=== PATIENT | female | born 1935 | race Caucasian/White ===

== ENCOUNTER 2020-06-13 12:52 | Emergency (ER) | payer OTHER ==
[~2020-06-13] VITALS: Ht 172.7 cm; Wt 113.4 kg
[~2020-06-13 12:52] MED LIST: DIFLUCAN150 MG PO; FERRO-TIME325 MG PO; GLUCOPHAGE500 MG PO; GLUCOTROL5 MG PO; GLYBURIDE 5 MG T5 M1 PO; MOBIC15 MG PO; NABUMETONE 500500 M1 PO; NEURONTIN 300300 M1 PO; PLAVIX 75 MG TA75 MG PO; TESSALON PERLE100 MG PO; TYLENOL EX-STR500 M2 PO; ZOCOR 20 MG TAB20 M1 PO
[2020-06-13 14:00] LABS: URINE BLOOD TRACE (Negative); URINE CLARITY CLEAR; URINE COLOR YELLOW; URINE GLUCOSE-RANDOM* NEGATIVE (Negative); URINE KETONES 1+ (Negative); URINE LEUKOCYTES-REFLEX NEGATIVE (Negative); URINE NITRITE-REFLEX NEGATIVE (Negative); URINE PROTEIN (DIPSTICK) TRACE (Negative); URINE SPECIFIC GRAVITY >= 1.030 (1.005-1.035); URINE UROBILINOGEN 0.2 E.U./dl (0.2-1.0)
[2020-06-13 14:03] LABS: ICTOTEST (BILI CONFIRMATORY) Negative (Negative); URINE BILIRUBIN NEGATIVE (Negative)
[2020-06-13 15:10] VITALS: BP 132/66
== END 2020-06-13 15:10 ==
LOC: ER 12:52
PROVIDERS: Emergency Medicine
DX: S62.657A Nondisplaced fracture of middle phalanx of left little finger, initial encounter for closed fracture (principal); M25.511 Pain in right shoulder; E11.9 Type 2 diabetes mellitus without complications; Z90.710 Acquired absence of both cervix and uterus; Z79.899 Other long term (current) drug therapy; Z88.2 Allergy status to sulfonamides; W19.XXXA Unspecified fall, initial encounter; Y93.89 Activity, other specified; Y92.89 Other specified places as the place of occurrence of the external cause; Y99.8 Other external cause status

== ENCOUNTER 2020-07-16 08:18 | Inpatient (IN) | payer OTHER ==
[2020-07-16] VITALS (7 sets, daily range): BP systolic 122–133; BP diastolic 54–58
[~2020-07-16] VITALS: Ht 160 cm; Wt 97.0 kg
[2020-07-16] MEDS ORDERED: SPIRONOLACTONE25 M1 PO ×2 (08:36→08:37)
[2020-07-16] MEDS ORDERED: PAIN RELIEF650 MG PO (08:36)
[2020-07-16] MEDS ORDERED: DOXYCYCLINE 10100 M2 PO (08:37)
[2020-07-16] MEDS ORDERED: NEURONTIN300 MG PO (08:37)
[2020-07-16] MEDS ORDERED: FUROSEMIDE 20 M20 M1 PO (08:37)
[2020-07-16] MEDS ORDERED: ARICEPT10 M1 PO (08:37)
[2020-07-16] MEDS ORDERED: PIOGLITAZONE15 MG (08:39)
[2020-07-16] MEDS ORDERED: TOPAMAX50 MG PO (08:39)
[2020-07-16] MEDS ORDERED: GLIMEPIRIDE4 MG PO (08:39)
[2020-07-16] MEDS ORDERED: LIPITOR 20 MG T20 M1 PO (08:39)
[2020-07-16] MEDS ORDERED: VITAMIN B122500 MCG PO (08:40)
[2020-07-16 09:36] LABS: URINE BILIRUBIN NEGATIVE (Negative); URINE BLOOD NEGATIVE (Negative); URINE CLARITY CLEAR; URINE COLOR YELLOW; URINE GLUCOSE-RANDOM* TRACE (Negative); URINE KETONES NEGATIVE (Negative); URINE LEUKOCYTES-REFLEX NEGATIVE (Negative); URINE NITRITE-REFLEX NEGATIVE (Negative); URINE PROTEIN (DIPSTICK) NEGATIVE (Negative); URINE SPECIFIC GRAVITY 1.025 (1.005-1.035); URINE UROBILINOGEN 0.2 E.U./dl (0.2-1.0)
[2020-07-16 09:56] LABS: HEMATOCRIT 37.9 % (37.0-47.0); HEMOGLOBIN 12.7 gm/dL (12.0-15.0); MCH 32.1 pg (26.0-34.0); MCHC 33.5 g/dL (28.0-37.0); MCV 95.6 fL (80.0-100.0); PLATELET COUNT 302 thou/uL (150-400); RBC 3.97 mil/uL (4.20-5.00); RDW 14.1 % (10.5-14.5); WBC 6.7 thou/uL (4.0-11.0)
[2020-07-16 10:10] LABS: ANION GAP 6 mmol/L (7-16); BUN 26 mg/dL (7-18); CALCIUM 9.4 mg/dL (8.5-10.1); CHLORIDE 99 mmol/L (98-107); CO2 30 mmol/L (21-32); CREATININE 1.7 mg/dL (0.6-1.0); GLUCOSE 161 mg/dL (74-106); POTASSIUM 3.9 mmol/L (3.5-5.1); SODIUM 135 mmol/L (136-145)
[2020-07-16 10:20] LABS: ALBUMIN 2.3 g/dL (3.4-5.0); SGOT 12 U/L (15-37); SGPT 12 U/L (30-65); TOTAL BILIRUBIN 0.2 mg/dL (0.2-1.0); TROPONIN-I <0.06 ng/mL (<0.06)
[2020-07-16 10:51] LABS: ABSOLUTE NEUTROPHILS 3.7 thou/uL (1.4-8.2); ANISOCYTOSIS 1+
--- NOTE | 2020-07-16 18:27 | NUR ---
PT RECEIVED AT 1130 FROM THE ER ALERT AND IN NO ACUTE DISTRESS. PT HAS CHRONIC CHALINO EDEMA AND STARTED WEEPING W/ SIGNS OF INFECTION. IV ANTIBIOTICS STARTED IN THE ER. LAXIX GIVEN X2. PT UP TO BSC ONCE BUT PLACED EXT CATH LATER PT WEAKER. LEGS PAINFUL IF TOUCHED OR MOVED BUT OTHERWISE NOT CAUSING DISCOMFORT. TYLENOL GIVEN FOR HEADACHE WHICH SHE STATES SHE HAS OFTEN. DR. POWELL HERE TO SEE LEGS AND ORDERS CREAM AND DSNGS. ID WILL SEE PT TOMORROW. EATING WELL.
--- NOTE | 2020-07-17 03:27 | NUR ---
PT ALERT, ORIENTED TO PERSON, AND DROWSY. PT NOTED TO HAVE TREMORS AT REST. PT DENIES PAIN AT REST. NOTED TO HAVE INCREASED PAIN WITH MOVEMENT AND TACTILE STIMULATION. PT REPORTS STIFFNESS IN LEFT INDEX FINGER. PT REPORTS RELIEF TO LEFT INDEX FINGER AFTER MASSAGE TO LEFT HAND AND WARM BLANKET APPLIED. PT WITH PRN PO APAP QID AND PRN IV FENTANYL Q4HR AVAILABLE. RESTING IN BED THROUGHOUT SHIFT. FREQUENT REPOSITIONING ENCOURAGED. WEEPING, PITTING EDEMA NOTED TO BLE. PT NOTED TO HAVE DIFFICULTY WITH REPOSITIONING DUE TO TENDERNESS AND PAIN IN BLE. PT AWAKENED REPORTING PAIN IN BILATERAL ANKLES. PT RECEIVED PRN IV FENTANYL Q4HR. PT RESTING IN BED WITHOUT INTERRUPTION OR OBSERVATION OF PAIN, SOB, OR DISCOMFORT. ENCOURAGED PT TO NOTIFY STAFF FOR ALL NEEDS. CALL LIGHT WITHIN REACH, BED ALARM ON, BED IN LOWEST POSITION, WILL CONTINUE TO MONITOR.
[2020-07-17 05:52] LABS: HEMATOCRIT 34.4 % (37.0-47.0); HEMOGLOBIN 11.3 gm/dL (12.0-15.0); MCH 31.9 pg (26.0-34.0); MCHC 32.9 g/dL (28.0-37.0); RBC 3.55 mil/uL (4.20-5.00); WBC 6.6 thou/uL (4.0-11.0)
[2020-07-17 06:35] LABS: CALCIUM 8.9 mg/dL (8.5-10.1); POTASSIUM 3.2 mmol/L (3.5-5.1)
--- NOTE | 2020-07-17 08:22 | EKG ---
[facility] [place] [address] ELECTROCARDIOGRAM REPORT Name: FLACO SNIDER Room #: 437-P ADM IN M.R.#: [id number] Admission: 07/16/20 Attend Phys: eKnny Lerma MD Discharge: Date of : 33 Report #: [id number] THIS REPORT FOR: cc: Temo Lawrence MD, Ramilo MD Lundgren,Erick Elizalde MD [facility] ~ THIS REPORT FOR: //name// [facility] ED Test Date: 2020-07-16 Test Time: 10:01:16 Pat Name: FLACO SNIDER Department: Room: [facility] Gender: F Gate Supervisor: марина : 1935 Requested By: Jay Jay Santamaria Order Number: [id number] MD: Erick Gann Measurements Intervals [place] Rate: 75 P: 42 MI: 246 QRS: 76 QRSD: 150 T: 3 QT: 448 QTc: 501 Interpretive Statements Sinus rhythm Prolonged MI interval Right bundle branch block Compared to ECG 10/24/2011 12:21:58 First degree AV block now present Right bundle-branch block now present Electronically Signed On 07-17-2020 8:21:57 CDT by Erick Gann [email or web address] <ELECTRONICALLY SIGNED> By: Erick Gann MD, FAC 07/17/20 0821 00 100 Erick Gann MD, FAC /EPI
[2020-07-17 16:10] VITALS: BP 110/53
--- NOTE | 2020-07-17 17:06 | NUR ---
PT A&OX2. FORGETFUL. ASSIST X1 TO BSC. IV INTACT IN L FA. BILAT LOWER EXTREM. ARE RED, WARM TO TOUCH. PAIN AT 7/10. ORDERS RECIEVED FOR WOUND CARE. CALL LIGHT WITHIN REACH.
[2020-07-17 19:30] VITALS: BP 116/54
--- NOTE | 2020-07-17 19:52 | NUR ---
BILAT LOWER EXTREMITIES DRSGS PLACED, USED WITH GENTAMYCIN, SILVADENE WITH MORPHINE NOT AVAILABLE AT THE TIME.PT TOLERATED WELL.
[2020-07-18 05:24] VITALS: BP 113/65
--- NOTE | 2020-07-18 06:19 | NUR ---
Assumed pt care at 1900. A/OX4,VSS. Denied pain on assessment. Dsg to BLE C/D/I,red and warm to touch. Up with AX1,RW/GB to BSC.Fall precautions in place,pat approp. Continent of bladder.
[2020-07-18 07:18] VITALS: BP 109/58
--- NOTE | 2020-07-18 09:39 | HC ---
[facility] [place] [address] CONSULTATION Name: FLACO SNIDER Room #: 437-P ADM IN M.R.#: [id number] Admission: 07/16/20 Attend Phys: Kenny Lerma MD Discharge: Date of : 33 Report #: [id number] THIS REPORT FOR: cc: Temo Lawrence MD,Ace Arguello MD, MD ~ CC: Kenny Lawrence DATE OF SERVICE: 07/16/2020 WOUND CARE CONSULTATION NOTE REASON FOR CONSULTATION: Painful cellulitis of both legs with desquamation and weeping. HISTORY OF PRESENT ILLNESS: The patient is an 85-year-old woman living in a long-term care facility with a history of dementia, peripheral vascular disease and diabetes mellitus type 2, who was admitted due to increased redness and swelling of her lower extremities with pain, tenderness and weeping as well as redness. The patient is not a good historian. She has been begun on IV antibiotics, vancomycin. PAST MEDICAL HISTORY: Diabetes mellitus type 2, peripheral vascular disease of lower extremities, previous history of cellulitis of the legs, chronic kidney disease, dementia, degenerative joint disease, obesity, history of seizures, hyperlipidemia, hypertension, neuropathy. ALLERGIES: SULFA. MEDICATIONS: Include acetaminophen, Aldactone, Aricept, doxycycline, Lasix, Neurontin, glimepiride, Lipitor, Actos, Topamax, vitamin B12. PAST SURGICAL HISTORY: Hysterectomy, hernia repair. SOCIAL HISTORY: The patient does not smoke or drink. PHYSICAL EXAMINATION: GENERAL: Shows an alert, elderly woman who is pleasant and conversant. HEENT: Mucous membranes are moist. NECK: Supple. LUNGS: Respirations unlabored. ABDOMEN: Obese. EXTREMITIES: Examination of the lower extremities shows extremely well demarcated redness beginning approximately 10 cm below the knees on both legs, which is circumferential. There is desquamation of large area bilaterally at [facility] [address] [place] [address] CONSULTATION Name: FLACO SNIDER Room #: 437-P [facility] IN [facility].#: [id number] Admission: 07/16/20 Attend Phys: Kenny Lerma MD Discharge: Date of : 34 Report #: [id number] the pretibial area, which is dry now but not moist. This is red and tender and extends to the feet. Clinically, cellulitic. Dorsalis pedis pulses are 2+ palpable bilaterally. Subtle changes of chronic venous stasis. IMPRESSION: 1. Cellulitis of right and left leg. 2. Peripheral vascular disease of right and left leg with ulceration. 3. Venous stasis ulceration and inflammation bilaterally. 4. Diabetes mellitus type 2 with skin ulcer. 5. Diabetic neuropathy. 6. Dementia. 7. Moderate protein-calorie malnutrition. PLAN: Continue IV antibiotics, Zosyn and vancomycin. The patient is SULFA allergic, so instead of Silvadene we ordered gentamicin 0.1% cream to be applied to the open areas, daily cover with Xeroform, ABD, Kerlix, elevate legs. Continue IV antibiotics. Wound care team will follow. <ELECTRONICALLY SIGNED> By: Ace Pisano MD 07/18/20 0939 [id number] [id number] Ace Pisano MD /nt
[2020-07-18 10:46] LABS: CALCIUM 8.2 mg/dL (8.5-10.1); POTASSIUM 3.2 mmol/L (3.5-5.1)
--- NOTE | 2020-07-18 13:32 | NUR ---
ASSESSMENT: cm reviewed chart and spoke with attending. PT WAS ADMITTED FOR LE CELLULITIS. PT IS FROM [facility]. CM SPOKE WITH JUDITH VILLEGAS DAUGHTER WHO REPORTS THAT PATIENTS HAS BEEN THERE LT FOR ABOUT 3 WEEKS AND BEFORE THAT WAS AT AN ASSISTED LIVING. DAUGHTER REPORTS THEIR PLAN IS FOR HER TO GO BACK TO [facility]. CM FAXED REFERRAL TO [facility]. CM RECEIVED A CALL FROM [facility] WHO REPORTS THAT PATIENTS BED WAS NOT ON HOLD SO THEY WILL HAVE TO BE NOTIFIED ONCE PATIENT IS DISCHARGED IF THEY STILL HAVE A BED AVAILABLE. CM NOTIFIED PATIENTS DAUGHTER JUDITH OF THIS AND SHE REPORTS SHE IS TRYING TO GET [facility] OF [facility] SO THEY CAN BUT THE BED ON A HOLD FOR HER. KACEY SPOKE WITH ATTENDING AND PLANS ARE TO DISCHARGE BACK TO [facility] AFTER A FEW DAYS OF IV ANBX. DAUGHTER REPORTS THAT PATIENT NORMALLY USES A WALKER FOR AMBULATION.
[2020-07-18 15:48] VITALS: BP 121/57
--- NOTE | 2020-07-18 16:30 | NUR ---
ASSUMED CARE AT 0700. PT IS ALERT TO SELF, CONFUSED. IRRITATED AT TIMES. VSSA/RA. GI/ NML. TOLERATING DIET. ACCUCHECKS. DID HAVE A CHOKING EPISODE THIS AM ON HER SUASAGE. SHE WAS ABLE TO THROW IT BACK UP AND CLEAR HER AIRWAY. WILL MONITOR. PIV IN PLACE. NO COMPLAINTS AT THIS TIME. FALL PRECAUTIONS IN PLACE. BED ALARM ON. EDUCATED PT TO CALL IF NEEDS ARISE. CALL LIGHT IN REACH. WILL CONTINUE TO MONITOR PT HAS HAD TO GET UP TO BSC MULTIPLE TIMES, PLACED EXTERNAL FEMALE CATH. PT GETS SOB AND TIRED WHEN SHE HAS TO KEEP GETTING UP. WILL MONITOR
[2020-07-18 19:13] VITALS: BP 119/53
[2020-07-18 21:28] VITALS: BP 119/53
[2020-07-19 03:06] LABS: GLYCOHEMOGLOBIN (HGB A1C) 7.6 % (4.8-5.6)
--- NOTE | 2020-07-19 03:43 | NUR ---
REPORT RECEIVED THAT PT AOX1-2, NONAMBULATING DURING DAYSHIFT DUE TO INCREASED WEAKNESS AND DROWSINESS, PT WITH EXTERNAL CATHETER. UPON ASSESSMENT, PT AOX4 WITH FORGETFULNESS. PT REPORTS PAIN IN BLE. PT RECEIVING PRN IV FENTANYL Q4HR AND PRN PO NORCO Q4HR AVAILABLE. PT TOLERATING PO INTAKE OF FLUIDS AND HEART HEALTHY DIET. PT RESTING IN BED, NOTED TO SLIGHTLY SHIFT INDEPENDENTLY WHILE IN BED, FREQUENT REPOSITIONING ENCOURAGED. PT INTERMITTENTLY REFUSING Q2HR TURNS DUE TO REPORTS OF COMFORT. PT NOTED TO HAVE GENERALIZED WEAKNESS AND FATIGUE WHEN REPOSITIONED. PT REPORTS DIZZINESS WHEN SITTING UP, AMBULATION DIFFICULT DUE TO DIZZINESS AND WEAKNESS. PT NOTED REPORT URGENCY TO URINATE AFTER EPISODES OF INCONTINENCE, EXTERNAL CATHETER INEFFECTIVE, REDNESS AND TENDERNESS NOTED TO TADEO AND SACRAL AREA, BARRIER CREAM APPLIED. ONCALL MAILING MANAGER NOTIFIED, RECEIVED ORDERS FOR CATHETER INSERTION. PRIOR TO RAINES CATHETER INSERTION, PT WITH INCONTINENT EPISODE. RAINES INSERTED WITH 200ML OUTPUT OF BLOODY URINE. PT CONTINUED TO REPORT URGENCY. PT REMINDED ABOUT RAINES CATHETER PLACEMENT, PT BRIEFLY REMEMBERS THEN CONTINUES TO REPORT URGENCY. PT WITH X3 LARGE LOOSE STOOLS. PT NOTED TO GET OUT OF BED AND PULL OUT RAINES CATHETER. PT ASSESSED WITHOUT INJURY, DENIES FALL, REPORTS URGENCY TO URINATE AND HAVE BM. PT ASSISTED BACK TO BED WITH WALKER AND X2 ASSIST. PT NOTED TO HAVE EXTREME WEAKNESS WHEN RAISING FROM SITTING TO STANDING POSITION, MECHANICAL ASSIST REQUIRED FOR PT TO CHANGE FROM SITTING TO STANDING POSITION. PT REPORTS WEAKNESS AND DIZZINESS WHEN AMBULATING WITH WALKER AND X2 ASSIST, GAIT STEADY. PT CONTINUED TO REPORT URGENCY TO URINATE WITH NEW BURNING SENSATION WHILE URINATING. ONCALL MAILING MANAGER NOTIFIED, NO NEW ORDERS RECEIVED. PROVIDED EDUCATION TO PT IN REGARDS TO THE POSSIBLE OUTCOMES OF IMPROPERLY REMOVING RAINES CATHETER. PT REPORTS 'I DONT CARE'. PROVIDED REASSURANCE TO PT THAT PT SAFETY AND IMPROVED PT OUCOMES ARE PRIORITIES OF CARE. BSC AND WALKER REMAIN NEAR PT BED. PT FREQUENTLY ASSISTED FROM BED TO BSC DUE TO REPORTS OF URGENCY. SCANT AMOUNT OF URINE OUTPUT NOTED, BLOOD OBSERVED WHEN PERICARE PROVIDED. ENCOURAGE PT TO NOTIFY STAFF FOR ALL NEEDS, CALL LIGHT WITHIN REACH, BED ALARM ON, WILL CONTINUE TO MONITOR.
[2020-07-19 05:42] LABS: HEMATOCRIT 35.8 % (37.0-47.0); MCH 32.4 pg (26.0-34.0); MCHC 33.4 g/dL (28.0-37.0); RBC 3.69 mil/uL (4.20-5.00); RDW 14.1 % (10.5-14.5)
[2020-07-19 05:45] LABS: CALCIUM 8.9 mg/dL (8.5-10.1); CREATININE 1.9 mg/dL (0.6-1.0); POTASSIUM 3.3 mmol/L (3.5-5.1)
[2020-07-19 08:42] VITALS: BP 120/56
--- NOTE | 2020-07-19 13:05 | NUR ---
ON-GOING ASSESSMENT: CM REVIEWED CHART. CM LEFT VM FOR [facility] [employer] TO CONTACT CM BACK PATIENT IS NEARING DISCHARGE AND WANTED TO CLARIFY THAT THEY HAVE A BED. CM RECEIVED A CALL BACK FROM [facility] [employer] AND SHE REPORTS THAT THEY WERE UNABLE TO REACH PATIENTS FAMILY WHEN SHE CAME TO THE HOSPITAL SO HER BED WAS NOT PLACED ON HOLD AND THAT THEY HAVE FILLED HER SPOT AND CAN NO LONGER ACCEPT PATIENT BACK. CM REACHED OUT TO PATIENTS DAUGHTER JUDITH WHO REPORTS SHE IS VERY UPSET WITH [facility]. CM DISCUSSED OTHER POSSIBLE OPTIONS FOR SNF- IF INSURANCE WITH AUTHORIZE AND THEN TRANSITION INTO LTC. DAUGHTER REPORTS THAT [facility] IS RIGHT BY HER HOME AND SHE REQUEST TO SEE IF THEY CAN ACCEPT HER FOR SNF AND POSSIBLE LTC. CM REACHED OUT TO [facility] [phone] AND SPOKE WITH BIANCA IN ADMISSIONS WHO REPORTS THEY HAVE SNF BED AND LTC BEDS OPEN. CM FAXED REFERRAL AND AWAITING TO HEAR BACK. CM SPOKE WITH ATTENDING AND NOTIFIED HIM OF LIKELY NEED FOR COVID TEST. CM WILL CONTINUE TO FOLLOW TO ASSIST NEEDED.
--- NOTE | 2020-07-19 14:52 | NUR ---
PT A&OX2. FORGETFUL. IV INTACT IN L FA. TRANSFERS TO CHAIR WITH WITH ASSIST X1. BILAT LOWER EXTREMITY DRSG CHANGED ORDERED, PICS TAKEN. PT IS DROWSEY TODAY. URINE IS PINK TINGED D/T BLOOD FROM RAINES PULLED OUT BY PT. PT IS VOIDING, INCONT AT TIMES. SITTING IN CHAIR AT THIS TIME, CHAIR ALARM ON.
[2020-07-19 16:15] VITALS: BP 134/62
[2020-07-19 19:02] VITALS: BP 118/59
--- NOTE | 2020-07-20 02:40 | NUR ---
ASSUMED PT CARE AT 1905. PT IS A&OX2. LEFT FOREARM IV SALINE LOCKED. PT SITS IN THE BED WITH THE HEAD OF THE BED REALLY HIGH ALOMOST 90 DEGREES. PT DOES NOT LIKE TO BE LAYED FLAT. PT TAKES ALL SCHEDULED MEDS. PT BLOOD SUGAR IS 164. INDICATES THAT 3 UNITS OF LISPRO NEEDS TO BE ADMINISTERED. PT IS INCONTINENT B&B. PT HAS A MODERATE BM (LOOSE). URINE IS YELLOW. WILL CONTINUE TO MONITOR.
[2020-07-20 03:15] VITALS: BP 126/65
[2020-07-20 08:19] VITALS: BP 133/67
--- NOTE | 2020-07-20 10:19 | NUR ---
on-going assessment: CM SPOKE WITH VERONICA IN ADMISSIONS LATE YESTERDAY EVENING AT [facility] WHO REPORTS THEY CAN MEDICALLY ACCEPT PATIENT AND ALSO HAVE LTC BEDS OPEN AND ACCEPT MEDICAID PENDING. CM FAXED PT/OT AND REQUESTED THEY START TO SEEK INSURANCE AUTH. CM WILL CONTINUE TO FOLLOW.
[2020-07-20 11:58] VITALS: BP 133/71
[2020-07-20 15:24] VITALS: BP 149/69
--- NOTE | 2020-07-20 18:13 | NUR ---
PT A&OX3. FORGETFUL. IV INTACT IN L FA. VSS. DRSGS TO BILAT LOWER EXTREMITIES CHANGED. THERE IS LESS SWEELING AND DRAINING NOTED IN PAST 2 DAYS, STILL REMAINS RED AND WARM TO TOUCH. PT UP TO BSC WITH ASSIST X1. CALL LIGHT W/I REACH, BED ALARM ON.
[2020-07-20 20:25] VITALS: BP 142/81
--- NOTE | 2020-07-21 03:07 | NUR ---
ASSUMED PT CARE AT 1900.PT WAS ALERT AND SLEEPY AT SHIFT CHANGE.DRSG TO HER BLE C/D/I.BG MONITORED NO COVERAGE NEEDED.PT REPOSITIONED WHILE IN BED.PT STILL ON IV ABX ORDERED.PT SLEEPING ON HER BED AT THIS TIME.FALL PRECAUTIONS IN PLACE.CALL LIGHT WITHIN REACH.
[2020-07-21 04:50] VITALS: BP 135/67
[2020-07-21 07:45] VITALS: BP 135/63
--- NOTE | 2020-07-21 10:38 | NUR ---
on-going assessment: jesica reviewed chart and spoke with vicente at [facility]. she reports insurance is requesting more additional updates/progress notes. cm faxed updated notes to facility and awaiting insurance auth at this time.
--- NOTE | 2020-07-21 13:18 | NUR ---
Assumed care of pt at 0700. Dressing on kem LE c/d/i. Pt up to chair after breakfast. Incontinent. Awaiting on ins auth for SNF. Call light within reach. Fall precautions in place. Will continue to monitor.
--- NOTE | 2020-07-21 14:49 | NUR ---
ON-GOING ASSESSMENT: KACEY SPOKE AGAIN WITH BIANCA IN ADMISSIONS AT [facility] WHO REPORTS THEY ARE STILL AWAITING INSURANCE AUTH AT THIS TIME. SHE REPORTS IF THEY RECEIVE IT THEY CAN ACCEPT OVER THE WEEKEND. SHE REPORTS THAT IF THEY RECEIVE INSURANCE AUTH OVER THE WEEKEND SHE WILL CONTACT THE RN ON 4S AT [phone] AND ARRANGE TRANSPORTATION. DISCHARGE ORDERS WILL NEED TO BE FAXED TO [facility] FAX: [phone]. CHART COPY WILL NEED TO BE SENT WITH PT. IF FOR ANY REASON INSURANCE DENIES SNF THEN THEY CAN ACCEPT HER TO LTC- MEDICAID PENDING. CONTACT FOR DAISY AT [facility] IS [phone]. SHE AGAIN WILL REACH OUT TO 4S NURSE IF THEY RECEIVE AUTH OVER THE WEEKEND. KACEY LEFT A VM FOR PATIENTS DAUGHTER JUDITH TO UPDATE HER. JUDITH:[phone].
[2020-07-21 16:15] VITALS: BP 139/93
[2020-07-21 20:02] VITALS: BP 125/57
--- NOTE | 2020-07-22 01:16 | NUR ---
PT IN BED AT START OF SHIFT.PT DENIED PAIN SO FAR.PT INCONT OF B&B, TADEO CARE AND BARRIER CREAM WITH EACH INCONTINENCE.DRSG TO HER BLE INTACT,NO DRAINAGE NOTED.PT REPOSITIONED WHILE IN BED.PT SLEEPING COMFORTABLY ON HER BED AT THIS TIME.FALL PRECAUTIONS IN PLACE,CALL LIGHT WITHIN REACH.
[2020-07-22 04:04] VITALS: BP 131/53
[2020-07-22 07:30] VITALS: BP 141/67
[2020-07-22 15:36] VITALS: BP 119/96
--- NOTE | 2020-07-22 15:43 | NUR ---
Assumed care of pt at 0700. Dressings changed. Pain controlled. Awaiting ins auth. Call light within reach. Fall precautions in place. Will continue to monitor.
[2020-07-22 19:26] VITALS: BP 120/61
--- NOTE | 2020-07-23 00:06 | NUR ---
PT C/O PAIN ON HER BLE,MANAGED WITH MED.UP WITH ASSIST TO THE BSC.BLE DRSG C/D/I,ELEVATED WITH A PILLOW.PT REPOSITIONED Q2 WHILE IN BED.PT ABLE TO MAKE HER NEEDS KNOWN.FALL PRECAUTIONS IN PLACE,CALL LIGHT WITHIN REACH.
[2020-07-23 04:30] VITALS: BP 126/66
[2020-07-23 07:35] VITALS: BP 140/66
[2020-07-23 09:03] VITALS: BP 140/66
[2020-07-23 16:50] VITALS: BP 143/77
--- NOTE | 2020-07-23 18:17 | NUR ---
ASSUMED CARE OF PATIENT ATN SHIFT CHANGE. ASSESSMENT CHARTED. MEDS GIVEN PER MAR. VSS. FSBS IS STABLE. NO ISULIN NEEDED THIS SHIFT; PATIENT HAS A POOR APPETITE AND ATE VERY LITTLE THROUGHOUT DAY. PATIENT GOT UP X 2 TO [facility] AND TOLERATED WELL. PATIENT NAPPED ALL AFTERNOON. VOICED MODERATE PAIN; PRN PAIN MEDS GIVEN. PATIENT VOICED ITCHING ON BACK, PROVIDER AWARE. WOUND CARE DONE BY THIS NURSE. PATIENT VOICED NO FURTHER NEEDS. FALL PRECAUTIONS IN PLACE. WILL CONTINUE TO MONITOR
[2020-07-23 18:56] VITALS: BP 115/54
--- NOTE | 2020-07-24 00:47 | NUR ---
PT LYING IN BED. REMAINS INCONTINENT AT NIGHT. LORTAB PROVIDING PAIN RELIEF. RESTING COMFORTABLY. NO NEEDS VOICED. CALL LIGHT WITHIN REACH. FREQUENT OBSERVATION.
[2020-07-24 05:30] LABS: HEMATOCRIT 35.2 % (37.0-47.0); HEMOGLOBIN 11.5 gm/dL (12.0-15.0); MCH 31.6 pg (26.0-34.0); MCHC 32.6 g/dL (28.0-37.0); MCV 97.1 fL (80.0-100.0); RBC 3.63 mil/uL (4.20-5.00); RDW 14.1 % (10.5-14.5); WBC 4.3 thou/uL (4.0-11.0)
[2020-07-24 05:38] LABS: CALCIUM 8.8 mg/dL (8.5-10.1); CREATININE 1.2 mg/dL (0.6-1.0); MAGNESIUM 2.2 mg/dL (1.8-2.4); POTASSIUM 3.4 mmol/L (3.5-5.1)
[2020-07-24 07:05] VITALS: BP 117/50
[2020-07-24 15:37] VITALS: BP 145/62
--- NOTE | 2020-07-24 19:43 | NUR ---
ASSUMED CARE OF THE PATIENT AT 0715, PATIENT ALERT AND ORIENTED X 2, WITH CONFUSION. PATIENT C/O PAIN WITH CHALINO. LEGS, HYDROCODONE 2 TABLETS GIVEN THIS AM. BLADDER SCAN DONE AND 42CC, PATIENT INCONTINENT X 1. LASIX 4 MG IV GIVEN THIS AM. PATIENT HAS LEFT FOREARM IV IN PLACE. CHALINO LEG DRESSING DONE. ACCU AC/HS LAST BS 130. PATIENT'S APPETITE NOT GOOD. PLAN FOR FRIDAY PENDING INS. AUTHORIZATION. REPORT GIVEN TO DAINA/PEGGY.
[2020-07-24 20:25] VITALS: BP 139/66
--- NOTE | 2020-07-25 01:58 | NUR ---
Assumed care on 07/24/20 @ 21:45, In bed, drowsy, awakened to voice, Oriented x2, confusion noted. IV in LFA dsy C/D/I. Acucheck 135, no S/S coverage required. Patient wanted this nurse to leave her medications on the bedside table for her to "take later", education provided as to the doctor's order includes the time for a patient to take the medicine, she Took meds whole with water with encouragement. Will continue to monitor as per protocol for patient comfort and safety.
[2020-07-25 04:26] VITALS: BP 153/69
[2020-07-25 08:34] VITALS: BP 134/61
--- NOTE | 2020-07-25 10:13 | NUR ---
on-going assessment: KACEY REACHED OUT TO BIANCA AT [facility] TO SEE IF THEY HAVE RECEIVED INSURANCE AUTH. SHE REPORTS THAT THEY HAVE NOT HEARD BACK FROM INSURANCE AT THIS TIME. KACEY REQUESTED PT/OT TO SEE PATIENT THIS AM SO UPDATES COULD BE FAXED. CM FAXED UPDATED THERAPY AND PROGRESS NOTES TO [facility] AND STILL AWAITING INSURANCE AUTH AT THIS TIME. KACEY WILL CONTINUE TO FOLLOW TO ASSIST NEEDED.
[2020-07-25 14:32] LABS: HEMATOCRIT 39.8 % (37.0-47.0); MCH 31.7 pg (26.0-34.0); MCHC 32.5 g/dL (28.0-37.0); MCV 97.6 fL (80.0-100.0); RBC 4.08 mil/uL (4.20-5.00); RDW 14.2 % (10.5-14.5); WBC 4.7 thou/uL (4.0-11.0)
[2020-07-25 14:50] LABS: CALCIUM 9.4 mg/dL (8.5-10.1); CREATININE 1.3 mg/dL (0.6-1.0); MAGNESIUM 2.3 mg/dL (1.8-2.4); POTASSIUM 4.6 mmol/L (3.5-5.1)
[2020-07-25] MEDS ORDERED: KEFLEX500 M1 PO (14:54)
[2020-07-25] MEDS ORDERED: NEURONTIN100 MG PO (14:56)
--- NOTE | 2020-07-25 15:23 | NUR ---
ON-GOING ASSESSMENT: KACEY CEIVED A CALL FROM BIANCA IN ADMISSIONS AT [facility] WHO REPORTS THEY HAVE AUTH TO ACCEPT PT TODAY. CM NOTIFIED ATTENDING WELL PT. KACEY SPOKE WITH PATIENTS DAUGHTER JOLANTA HER OTHER DAUGHTER JUDITH IS IN THE HOSPITAL AND NOTIFIED OF DISCHARGE. CM FAXED D/C ORDERS ALONG WITH NEGATIVE COVID TEST AND [id number] TO [facility]. CHART COPY WAS ORDERED AND KACEY NOTIFIED ORTHOPEDICS PEDIATRIC PHYSICIAN. BEDSIDE RN NOTIFIED OF NUMBER FOR REPORT. TRANSPORTATION WAS ARRANGED FOR [phone]. BEDSIDE RN AWARE. PT REPORTS NO FURTHER NEEDS FROM KACEY.
--- NOTE | 2020-07-25 16:22 | NUR ---
ASSUMED CARE OF PATIENT AT SHIFT CHANGE. ASSESSMENT CHARTED. MEDS GIVEN PER MAR. VSS. PATIENT C/O PAIN; PRN PAIN MEDS GIVEN. WOUND NURSE NOTED IMPROVEMENT WITH WOUNDS-NO DRAINAGE. WOUND DRESSING CHANGED THIS AM. PATIENT IS RESTING ON CHAIR. UP TO CHAIR AND BSC WITH [facility] TOLERANCE AND IS IMPROVING. TRANSPORT ARRAGED TO [facility] AT APPROX 1630. WILL CONTINUE TO MONITOR
== END 2020-07-25 17:22 | DRG 602 ==
LOC: ER 08:18 → 4S 12:13
PROVIDERS: Emergency Medicine; Internal Medicine; ADMIT Hospitalist; ATTEND Hospitalist
DX: L03.116 Cellulitis of left lower limb (principal); G93.41 Metabolic encephalopathy; E43 Unspecified severe protein-calorie malnutrition; N17.9 Acute kidney failure, unspecified; L97.929 Non-pressure chronic ulcer of unspecified part of left lower leg with unspecified severity; L97.919 Non-pressure chronic ulcer of unspecified part of right lower leg with unspecified severity; L03.115 Cellulitis of right lower limb; G30.9 Alzheimer's disease, unspecified; F02.80 Dementia in other diseases classified elsewhere, unspecified severity, without behavioral disturbance, psychotic disturbance, mood disturbance, and anxiety; E11.22 Type 2 diabetes mellitus with diabetic chronic kidney disease; I12.9 Hypertensive chronic kidney disease with stage 1 through stage 4 chronic kidney disease, or unspecified chronic kidney disease; E78.5 Hyperlipidemia, unspecified; F32.9 Major depressive disorder, single episode, unspecified; G43.909 Migraine, unspecified, not intractable, without status migrainosus; E11.51 Type 2 diabetes mellitus with diabetic peripheral angiopathy without gangrene; I87.8 Other specified disorders of veins; M19.90 Unspecified osteoarthritis, unspecified site; E11.40 Type 2 diabetes mellitus with diabetic neuropathy, unspecified; R53.81 Other malaise; E87.6 Hypokalemia; N18.3 Chronic kidney disease, stage 3 (moderate); Z20.828 Contact with and (suspected) exposure to other viral communicable diseases; Z66 Do not resuscitate; Z68.37 Body mass index [BMI] 37.0-37.9, adult; Z90.710 Acquired absence of both cervix and uterus; Z88.2 Allergy status to sulfonamides; Z79.84 Long term (current) use of oral hypoglycemic drugs; Z79.899 Other long term (current) drug therapy
CPT/HCPCS: 10102